=== PATIENT | female | born 1990 | race Caucasian/White ===

== ENCOUNTER 2016-05-01 11:50 | Emergency (ER) | payer OTHER ==
[2016-05-01] MEDS ORDERED: NS 500 ML IV ONE (11:57)
[2016-05-01 12:00] VITALS: RESP 16; TEMP 97.9; O2SAT 100
--- NOTE | 2016-05-01 12:02 | CPEKG ---
Heart Rate: 63 RR Interval: 952 P-R Interval: 180 QRSD Interval: 88 QT Interval: 408 QTC Interval: 418 P Isabela: 65 QRS Isabela: 49 T Wave Isabela: 39 EKG Severity - NORMAL ECG - EKG Impression: SINUS RHYTHM Electronically Signed By: Ramakrishna Jack 02-May-2016 10:01:51
--- NOTE | 2016-05-01 12:23 | EDPHY ---
H & P Stated Complaint: Cp with radiation to jaw. HPI/ROS: CHIEF COMPLAINT: Flush, nauseated, vomiting HISTORY OF PRESENT ILLNESS: sudden onset of feeling flush, nauseated and then vomiting around 10:45 a.m.. 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 She stood up to walk out of the room, saw someone she knew and then vomited. She had no chest pain with this. She describes an abnormal sensation of the right side of the jaw and the roof of the mouth. This was accompanied by feeling flushed and lightheaded. He has the same symptoms she has had in the past, for which she has been diagnosed with dysautonomia. She has no chest pain of any kind right now or previously this. No fever or chills. No cough or congestion. No shortness of breath. No abdominal pain. Symptoms have improved after the IV Zofran she received EN route By EMS. No other associated complaints or modifying factors. Does have a history of anxiety and was started on citalopram yesterday morning, and has had 2 doses of 5 mg pills. REVIEW OF SYSTEMS: Ten systems reviewed and are negative unless otherwise noted in the HPI EXAMINATION General Appearance: Alert, no distress Head: normocephalic, atraumatic Eyes: Pupils equal and round, no conjunctival pallor or injection ENT, Mouth: Mucous membranes moist . Uvula midline. No erythema or edema. Neck: Normal inspection, supple, non-tender . Painless range of motion all planes. Respiratory: Lungs are clear to auscultation . No wheezing, rhonchi or crackles. Cardiovascular: Regular rate and rhythm . No murmur. Pulses intact distally and symmetrically. Gastrointestinal: Abdomen is soft and nontender Neurological: A&O, nonfocal, Strength is symmetric in all limbs. No dysmetria. No pronator drift. Sensory intact Skin: Warm and dry, no rash Extremities: Nontender, no pedal edema Psychiatric: Mood and affect normal DIFFERENTIAL DIAGNOSES: Including but not limited to electrolyte disturbance, dysautonomia, anxiety, stress, palpitations MDM: 12:15 p.m. episode of feeling flushed, nauseated and right-sided jaw discomfort. No chest pain of any kind during this. She is feeling significantly better at this time. No longer nauseated no longer flushed. She does have a history of this, and the symptoms are consistent with previous episodes. 1:20 p.m. patient is feeling much better. Laboratory studies are unremarkable. EKG is normal sinus rhythm. We will ambulate her to see if the symptoms return if not she will be discharged home. Recommend she follow up with primary care physician to discuss this and possibility of a referral for this diagnosis of this autonomic function. Patient is comfortable with this plan and discharged home in stable condition. EKG: Interpreted by Dr. Armstrong Rate is 60 beats per minute. Normal sinus rhythm. MD interval 180. QT interval 408. Normal axis. no ST depression or elevation. T-wave inversion and AVR and V1. SUPERVISION: Patient was evaluated in conjunction with the supervising physician. Please see their note for details. Source: Patient Exam Limitations: No limitations - Personal History LMP (Females 10-55): 8-14 Days Ago Current Tetanus Diphtheria and Acellular Pertussis (TDAP): Yes - Medical/Surgical History Hx Asthma: No Hx Chronic Respiratory Disease: No Hx Diabetes: No Hx Cardiac Disease: No Hx Renal Disease: No Hx Cirrhosis: No Hx Alcoholism: No Hx HIV/AIDS: No Hx Splenectomy or Spleen Trauma: No Other PMH: distaunonia. seizures. concussions - Social History Smoking Status: Never smoked Constitutional: Initial Vital Signs Temperature (C) 97.9 F 05/01/16 11:57 Heart Rate 70 05/01/16 11:57 Respiratory Rate 16 05/01/16 11:57 Blood Pressure 130/74 H 05/01/16 11:57 O2 Sat (%) 100 05/01/16 11:57 O2 Delivery Mode Room Air Allergies/Adverse Reactions: seasonal Allergy (Uncoded 05/01/16 12:00) Home Medications: Medication Instructions Recorded Atenolol 05/01/16 LORazepam 05/01/16 Medical Decision Making - Data Points Laboratory Results: Laboratory Results 05/01/16 11:55 05/01/16 11:55 05/01/16 05/01/16 05/01/16 11:55 11:55 11:55 WBC 6.83 10^3/uL 10^3/uL (3.80-9.50) RBC 5.07 10^6/uL 10^6/uL (4.18-5.33) Hgb 16.9 g/dL H g/dL (12.6-16.3) Hct 48.0 % H % (38.0-47.0) MCV 94.7 fL fL (81.5-99.8) MCH 33.3 pg pg (27.9-34.1) MCHC 35.2 g/dL g/dL (32.4-36.7) RDW 11.1 % L % (11.5-15.2) Plt Count 319 10^3/uL 10^3/uL (150-400) MPV 10.0 fL fL (8.7-11.7) Neut % (Auto) 56.8 % % (39.3-74.2) Lymph % (Auto) 34.1 % % (15.0-45.0) [place] % (Auto) 6.4 % % (4.5-13.0) Eos % (Auto) 2.0 % % (0.6-7.6) Baso % (Auto) 0.6 % % (0.3-1.7) Nucleat RBC Rel Count 0.0 % % (0.0-0.2) Absolute Neuts (auto) 3.87 10^3/uL 10^3/uL (1.70-6.50) Absolute Lymphs (auto) 2.33 10^3/uL 10^3/uL (1.00-3.00) Absolute Monos (auto) 0.44 10^3/uL 10^3/uL (0.30-0.80) Absolute Eos (auto) 0.14 10^3/uL 10^3/uL (0.03-0.40) Absolute Basos (auto) 0.04 10^3/uL 10^3/uL (0.02-0.10) Absolute Nucleated RBC 0.00 10^3/uL 10^3/uL (0-0.01) Immature Gran % 0.1 % % (0.0-1.1) Immature Gran # 0.01 10^3/uL 10^3/uL (0.00-0.10) Sodium 141 mEq/L mEq/L (134-144) Potassium 4.2 mEq/L mEq/L (3.5-5.2) Chloride 104 mEq/L mEq/L (97-110) Carbon Dioxide 21 mEq/l L mEq/l (22-31) Anion Gap 16 mEq/L mEq/L (8-16) BUN 8 mg/dL mg/dL (7-23) Creatinine 0.7 mg/dL mg/dL (0.6-1.0) Estimated GFR > 60 Glucose 87 mg/dL mg/dL (70-100) Calcium 10.8 mg/dL H mg/dL (8.5-10.4) Phosphorus Pending Total Bilirubin 0.9 mg/dL mg/dL (0.1-1.4) Conjugated Bilirubin 0.5 mg/dL mg/dL (0.0-0.5) Unconjugated Bilirubin 0.4 mg/dL mg/dL (0.0-1.1) AST 25 IU/L IU/L (14-46) ALT 26 IU/L IU/L (9-52) Alkaline Phosphatase 51 IU/L IU/L (38-126) Troponin I < 0.012 ng/mL ng/mL (0-0.034) Total Protein 9.2 g/dL H g/dL (6.3-8.2) Albumin 5.2 g/dL H g/dL (3.5-5.0) Lipase 256.0 IU/L IU/L (23-300) Beta HCG, Qual NEGATIVE Medications Given: Discontinued Medications Sodium Chloride (Ns) 500 mls @ 0 mls/hr IV ONCE ONE PRN Reason: As Directed Stop: 05/01/16 11:58 Last Admin: 05/01/16 12:21 Dose: 500 mls Departure - Departure Disposition: Home, Routine, Self-Care Clinical Impression: Flushing Nausea & vomiting Qualifiers: Vomiting type: unspecified Vomiting Intractability: non-intractable Qualified Code(s): R11.2 - Nausea with vomiting, unspecified Condition: Good Instructions: Autonomic Dysreflexia (ED) Additional Instructions: Contact primary care physician to discuss the Celexa. Also notify them of today's episode and see them in the next 2-3 days. Return here for return of symptoms or any chest pain Referrals: Patient,NotPresent [Unknown] - As per Instructions Maria Antonia Smith MD [Primary Care Provider] - As per Instructions Stand Alone Forms: School Excuse
[2016-05-01 12:24] LABS: % IMMATURE GRANULYOCYTES 0.1 % (0.0-1.1); ABSOLUTE IMMATURE GRANULOCYTES 0.01 10^3/uL (0.00-0.10); ADD DIFF? NO; ADD MORPH? NO; ADD SCAN? NO; ATYPICAL LYMPHOCYTE FLAG 10 (0-99); FRAGMENT RBC FLAG 0 (0-99); HEMOGLOBIN 16.9 g/dL (12.6-16.3); LEFT SHIFT FLG 0 (0-99); LIPEMIA HEMOLYSIS FLAG 90 (0-99); MEAN CELL HEMOGLOBIN 33.3 pg (27.9-34.1); MEAN CELL HEMOGLOBIN CONCENTR. 35.2 g/dL (32.4-36.7); MEAN CELL VOLUME 94.7 fL (81.5-99.8); PLATELET CLUMPS FLAG 10 (0-99); PLATELET COUNT 319 10^3/uL (150-400); RED BLOOD CELL COUNT 5.07 10^6/uL (4.18-5.33); RED CELL DISTRIBUTION WIDTH 11.1 % (11.5-15.2)
[2016-05-01 13:05] LABS: ALANINE AMINOTRANSFERASE 26 IU/L (9-52); ALBUMIN 5.2 g/dL (3.5-5.0); ALKALINE PHOSPHATASE 51 IU/L (38-126); ANION GAP 16 mEq/L (8-16); ASPARTATE AMINOTRANSFERASE 25 IU/L (14-46); BILIRUBIN,TOTAL 0.9 mg/dL (0.1-1.4); BILIRUBIN-CONJUGATED 0.5 mg/dL (0.0-0.5); BILIRUBIN-UNCONJUGATED 0.4 mg/dL (0.0-1.1); CALCIUM 10.8 mg/dL (8.5-10.4); CARBON DIOXIDE 21 mEq/l (22-31); CHLORIDE 104 mEq/L (97-110); CREATININE 0.7 mg/dL (0.6-1.0); GLOMERULAR FILTRATION RATE > 60; GLUCOSE 87 mg/dL (70-100); POTASSIUM 4.2 mEq/L (3.5-5.2); SODIUM 141 mEq/L (134-144); TOTAL PROTEIN 9.2 g/dL (6.3-8.2)
[2016-05-01 13:17] LABS: TROPONIN I < 0.012 ng/mL (0-0.034)
[2016-05-01 13:39] VITALS: BP 129/75; PULSE 71
== END 2016-05-01 13:53 | disposition home or self-care (01) ==
LOC: EDUNIT#
DX: R23.2 Flushing (principal); R11.2 Nausea with vomiting, unspecified

== ENCOUNTER 2016-05-11 17:19 | Emergency (ER) | payer OTHER ==
--- NOTE | 2016-05-11 17:33 | CPEKG ---
Heart Rate: 81 RR Interval: 741 P-R Interval: 168 QRSD Interval: 90 QT Interval: 376 QTC Interval: 437 P [place]: 66 QRS [place]: 32 T Wave [place]: 15 EKG Severity - NORMAL ECG - EKG Impression: SINUS RHYTHM Electronically Signed By: Talia Min 11-May-2016 18:51:33
[2016-05-11] MEDS ORDERED: LORazepam 2 MG/ML INJ IVP ONE (17:41)
--- NOTE | 2016-05-11 17:59 | EDPHY ---
H & P Stated Complaint: hr "feels"irregular/dizzy (seen for same last week/nl exam) - Personal History LMP (Females 10-55): 15-21 Days Ago Current Tetanus/Diphtheria Vaccine: Yes - Medical/Surgical History Hx Asthma: No Hx Chronic Respiratory Disease: No Hx Diabetes: No Hx Cardiac Disease: No Hx Renal Disease: No Hx Cirrhosis: No Hx Alcoholism: No Hx HIV/AIDS: No Hx Splenectomy or Spleen Trauma: No Other PMH: distaunonia. seizures. concussions - Social History Smoking Status: Never smoked HPI/ROS: Chief complaint: Flushed feeling History of present illness: This is a 26-year-old female who presents to the emergency department reporting feeling flushed. She reports she has been feeling flushed intermittently for the last few days. She has associated nausea with this feeling as well as palpitations. States today she did develop some jaw pain, trouble breathing and discomfort in the chest. She denies precipitating factors. She denies alleviating factors. She has had this problem multiple times previously in the past. She does report she is followed by a primary care doctor and has seen a cardiology group, currently it is believe she is suffering from dysautonomia. This is typical presentation for her. Review of systems: A 10 point review of systems was obtained and other than described above was negative (Vimal Beaulieu) - Physical Exam Exam: General Appearance: Alert, nontoxic. Eyes: Pupils equal and round no pallor or injection. ENT, Mouth: Mucous membranes moist. Respiratory: There are no retractions, lungs are clear to auscultation. Cardiovascular: Regular rate and rhythm. No murmur, rubs or gallops appreciated. Gastrointestinal: Abdomen is soft and non tender, no masses, bowel sounds normal. Neurological: Alert and oriented x4. Cranial nerves 2-12 grossly intact. Strength and sensation intact and symmetrical. Skin: Warm and dry, no rashes. Musculoskeletal: Neck is supple non tender. Extremities are symmetrical, full range of motion. Psychiatric: Patient is oriented X 3, there is no agitation. (Vimal Beaulieu) Constitutional: Initial Vital Signs Temperature (C) 36.6 C 05/11/16 17:23 Heart Rate 100 05/11/16 17:23 Respiratory Rate 24 H 05/11/16 17:23 Blood Pressure 134/81 H 05/11/16 17:23 O2 Sat (%) 100 05/11/16 17:23 O2 Delivery Mode Room Air Allergies/Adverse Reactions: seasonal Allergy (Uncoded 05/11/16 17:22) Home Medications: Medication Instructions Recorded Atenolol 05/01/16 LORazepam 05/01/16 Medical Decision Making ED Course/Re-evaluation: Patient is discussed with my secondary supervising physician Dr. Talia Min. Patient presents to the emergency department feeling flushed with associated symptoms. On presentation she is nontoxic. Afebrile and vital signs are stable. Physical exam is benign. Blood studies and EKG are unremarkable. She has suffered from this problem multiple times previously. This is typical for her. At this time I do not believe she warrants inpatient admission. She states she has an appointment with [facility] this Thursday, 2 days from now for continued evaluation of her problems. She is asked to keep this appointment. Home care is discussed. Return precautions are given. Patient voiced understanding and agreement with plan. (Vimal Beaulieu) Differential Diagnosis: Included but not limited to anemia, electrolyte disturbances, cardiac dysrhythmias, anxiety (Vimal Beaulieu) Other Provider: The patient was evaluated and managed by the physician hr assistant. I have reviewed this chart and I agree with the findings and plan of care as documented , as indicated by my signature. I am the secondary supervising physician. ( Talia Min) - Data Points Laboratory Results: Laboratory Results 05/11/16 17:56 05/11/16 17:56 05/11/16 05/11/16 05/11/16 17:56 17:56 17:56 WBC RBC Hgb Hct MCV MCH MCHC RDW Plt Count MPV Neut % (Auto) Lymph % (Auto) [place] % (Auto) Eos % (Auto) Baso % (Auto) Nucleat RBC Rel Count Absolute Neuts (auto) Absolute Lymphs (auto) Absolute Monos (auto) Absolute Eos (auto) Absolute Basos (auto) Absolute Nucleated RBC Immature Gran % Immature Gran # Sodium 140 mEq/L mEq/L (134-144) Potassium 3.9 mEq/L mEq/L (3.5-5.2) Chloride 106 mEq/L mEq/L (97-110) Carbon Dioxide 19 mEq/l L mEq/l (22-31) Anion Gap 15 mEq/L mEq/L (8-16) BUN 7 mg/dL mg/dL (7-23) Creatinine 0.7 mg/dL mg/dL (0.6-1.0) Estimated GFR > 60 Glucose 98 mg/dL mg/dL (70-100) Calcium 10.1 mg/dL mg/dL (8.5-10.4) Magnesium 2.0 mg/dL mg/dL (1.6-2.3) Troponin I < 0.012 ng/mL ng/mL (0-0.034) TSH 1.820 uIU/mL uIU/mL (0.465-4.680) Beta HCG, Qual NEGATIVE 05/11/16 17:56 WBC 9.49 10^3/uL 10^3/uL (3.80-9.50) RBC 4.70 10^6/uL 10^6/uL (4.18-5.33) Hgb 15.3 g/dL g/dL (12.6-16.3) Hct 43.8 % % (38.0-47.0) MCV 93.2 fL fL (81.5-99.8) MCH 32.6 pg pg (27.9-34.1) MCHC 34.9 g/dL g/dL (32.4-36.7) RDW 10.8 % L % (11.5-15.2) Plt Count 282 10^3/uL 10^3/uL (150-400) MPV 10.0 fL fL (8.7-11.7) Neut % (Auto) 65.2 % % (39.3-74.2) Lymph % (Auto) 24.8 % % (15.0-45.0) [place] % (Auto) 7.6 % % (4.5-13.0) Eos % (Auto) 1.8 % % (0.6-7.6) Baso % (Auto) 0.4 % % (0.3-1.7) Nucleat RBC Rel Count 0.0 % % (0.0-0.2) Absolute Neuts (auto) 6.19 10^3/uL 10^3/uL (1.70-6.50) Absolute Lymphs (auto) 2.35 10^3/uL 10^3/uL (1.00-3.00) Absolute Monos (auto) 0.72 10^3/uL 10^3/uL (0.30-0.80) Absolute Eos (auto) 0.17 10^3/uL 10^3/uL (0.03-0.40) Absolute Basos (auto) 0.04 10^3/uL 10^3/uL (0.02-0.10) Absolute Nucleated RBC 0.00 10^3/uL 10^3/uL (0-0.01) Immature Gran % 0.2 % % (0.0-1.1) Immature Gran # 0.02 10^3/uL 10^3/uL (0.00-0.10) Sodium Potassium Chloride Carbon Dioxide Anion Gap BUN Creatinine Estimated GFR Glucose Calcium Magnesium Troponin I TSH Beta HCG, Qual Medications Given: Discontinued Medications Lorazepam (Ativan Injection) 1 mg IVP EDNOW ONE Stop: 05/11/16 17:42 Last Admin: 05/11/16 17:59 Dose: 1 mg Departure - Departure Disposition: Home, Routine, Self-Care Clinical Impression: Palpitations Condition: Good Instructions: Palpitations (ED) Additional Instructions: Follow-up with your primary care doctor this week for continued evaluation and care If symptoms worsen or new symptoms develop return to the emergency department for recheck Referrals: Maria Antonia Smith MD [Primary Care Provider] - As per Instructions
[2016-05-11 18:28] LABS: % IMMATURE GRANULYOCYTES 0.2 % (0.0-1.1); ABSOLUTE IMMATURE GRANULOCYTES 0.02 10^3/uL (0.00-0.10); ADD DIFF? NO; ADD MORPH? NO; ADD SCAN? NO; ATYPICAL LYMPHOCYTE FLAG 10 (0-99); FRAGMENT RBC FLAG 0 (0-99); HEMATOCRIT 43.8 % (38.0-47.0); HEMOGLOBIN 15.3 g/dL (12.6-16.3); LEFT SHIFT FLG 0 (0-99); LIPEMIA HEMOLYSIS FLAG 90 (0-99); MEAN CELL HEMOGLOBIN 32.6 pg (27.9-34.1); MEAN CELL HEMOGLOBIN CONCENTR. 34.9 g/dL (32.4-36.7); MEAN CELL VOLUME 93.2 fL (81.5-99.8); PLATELET CLUMPS FLAG 0 (0-99); PLATELET COUNT 282 10^3/uL (150-400); RED CELL DISTRIBUTION WIDTH 10.8 % (11.5-15.2)
[2016-05-11 18:39] LABS: TROPONIN I < 0.012 ng/mL (0-0.034)
[2016-05-11 18:41] LABS: ANION GAP 15 mEq/L (8-16); CALCIUM 10.1 mg/dL (8.5-10.4); CARBON DIOXIDE 19 mEq/l (22-31); CHLORIDE 106 mEq/L (97-110); CREATININE 0.7 mg/dL (0.6-1.0); GLOMERULAR FILTRATION RATE > 60; GLUCOSE 98 mg/dL (70-100); POTASSIUM 3.9 mEq/L (3.5-5.2); SODIUM 140 mEq/L (134-144)
[2016-05-11 19:51] VITALS: BP 117/72; PULSE 78; RESP 18; TEMP 99; O2SAT 96
== END 2016-05-11 19:49 | disposition home or self-care (01) ==
DX: R00.2 Palpitations (principal)
CPT/HCPCS: 96374

== ENCOUNTER 2016-08-05 15:44 | Emergency (ER) | payer OTHER ==
--- NOTE | 2016-08-05 17:05 | EDPHY ---
H & P Stated Complaint: months of dizzyness/palpitations today noted sob Time Seen by Provider: 08/05/16 17:04 Source: Patient - Personal History LMP (Females 10-55): 22-28 Days Ago Current Tetanus/Diphtheria Vaccine: Yes - Medical/Surgical History Hx Asthma: No Hx Chronic Respiratory Disease: No Hx Diabetes: No Hx Cardiac Disease: No Hx Renal Disease: No Hx Cirrhosis: No Hx Alcoholism: No Hx HIV/AIDS: No Hx Splenectomy or Spleen Trauma: No Other PMH: distaunonia. seizures. concussions - Social History Smoking Status: Never smoked Constitutional: Initial Vital Signs Temperature (C) 36.7 C 08/05/16 16:00 Heart Rate 83 08/05/16 16:00 Respiratory Rate 16 08/05/16 16:00 Blood Pressure 141/98 H 08/05/16 16:00 O2 Sat (%) 98 08/05/16 16:00 O2 Delivery Mode Room Air Allergies/Adverse Reactions: seasonal Allergy (Uncoded 08/05/16 15:58) Home Medications: Medication Instructions Recorded Atenolol 05/01/16 LORazepam 05/01/16 PRILOSEC 08/05/16 Zantac 08/05/16 busPIRone 08/05/16 Medical Decision Making - Diagnostics Imaging: Discussed imaging studies w/ screw cutter Radiologist ED Course/Re-evaluation: CHIEF COMPLAINT: Dizziness, Palpitations HISTORY OF PRESENT ILLNESS: The patient is a 26-year-old female presenting with intermittent dizziness and palpitations. The patient has experienced symptoms of palpitations for the past year and has been evaluated by a welder production line gas. She worse a heart monitor for three days with no abnormalities seen. She saw an ENT and Neurologist for these bouts of dizziness. ENT found no inner ear issues. She had normal cervical neck MRA. She states these dizziness and palpitations have become more frequent recently. She has multiple episodes per day. She describes the dizziness and a sensation of being on a boat. She occasionally has associated chest tightness. These dizzy spells are not always associated with palpitations. The patient was recently started on anxiety medication and takes medication for anxiety attacks. She states she is able to tell the difference between anxiety and these dizzy episodes. REVIEW OF SYSTEMS: A 10 point review of systems was performed and is negative with the exception of the elements mentioned in the history of present illness. PHYSICAL EXAM: HR, BP, O2 Sat, RR. Temp noted General Appearance: Alert, well hydrated, appropriate, and non-toxic appearing. Head: Atraumatic without scalp tenderness or obvious injury Eyes: Pupils equal, round, reactive to light and accommodation, EOMI, no trauma , no injection. Ears: Clear bilaterally, no perforation, normal landmarks Nose: Atraumatic, no rhinorrhea, clear. Throat: There is no erythema or exudates, no lesions, normal tonsils, mucus membranes moist. Neck: Supple, 2+ carotid upstroke, nontender, no lymphadenopathy. Respiratory: No retractions, no distress, no wheezes, and no accessory muscle use. Lungs are clear to auscultation bilaterally. Cardiovascular: Regular rate and rhythm, no murmurs, rubs, or gallops. Bilateral carotid, radial, dorsalis pedis, and posterior tibial pulses intact. Good capillary refill all extremities. Gastrointestinal: Abdomen is soft, nontender, non-distended, no masses, no rebound, no guarding, no peritoneal signs. Musculoskeletal: Normal active ROM of all extremities, atraumatic. Neurological: Alert, appropriate, and interactive. The patient has normal DTRs and non-focal cranial nerves, motor, sensory, and cerebellar exam. Skin: No rashes, good turgor, no nodules on palpation. Past medical history: Anxiety, Seizures Past surgical history: Denies. Family history: Noncontributory. Social history: [employer] student. Single. Lives in [place]. DIAGNOSTICS/PROCEDURES/CRITICAL CARE TIME: ECHO is normal. An MRI of brain was obtained. Images were called to me by the radiologist. MRI is normal. See the full radiology report in the imaging section. DIFFERENTIAL DIAGNOSIS: The differential diagnosis for the patient's dizziness included but was not limited to peripheral and central causes of vertigo, orthostatic causes including dehydration, cardiogenic and neurogenic causes, and blood loss. MEDICAL DECISION MAKING: Patient presents with intermittent episodes of dizziness and palpitations that have been ongoing for the past year. Patient has had some work up done in regards to these symptoms. She has seen a neurologist for cervical spine MRA. She saw ENT and Electronics Engineering Manager. No remarkable findings. Patient takes a very small dose of buspirone for anxiety, this dosing may not be therapeutic. Plan to check ECHO for abnormality. Basic labs ordered as well as TSH and Magnesium. Patient has normal ECHO. Noncontrast MR brain is pending. Lab work is unremarkable. MRI is normal. Plan to discharge patient home. - Data Points Laboratory Results: Laboratory Results 08/05/16 18:13 08/05/16 18:13 08/05/16 08/05/16 08/05/16 18:13 18:13 18:13 WBC 11.16 10^3/uL H 10^3/uL (3.80-9.50) RBC 4.57 10^6/uL 10^6/uL (4.18-5.33) Hgb 15.3 g/dL g/dL (12.6-16.3) Hct 44.1 % % (38.0-47.0) MCV 96.5 fL fL (81.5-99.8) MCH 33.5 pg pg (27.9-34.1) MCHC 34.7 g/dL g/dL (32.4-36.7) RDW 11.3 % L % (11.5-15.2) Plt Count 298 10^3/uL 10^3/uL (150-400) MPV 10.6 fL fL (8.7-11.7) Neut % (Auto) 70.0 % % (39.3-74.2) Lymph % (Auto) 21.7 % % (15.0-45.0) [place] % (Auto) 5.6 % % (4.5-13.0) Eos % (Auto) 2.0 % % (0.6-7.6) Baso % (Auto) 0.4 % % (0.3-1.7) Nucleat RBC Rel Count 0.0 % % (0.0-0.2) Absolute Neuts (auto) 7.81 10^3/uL H 10^3/uL (1.70-6.50) Absolute Lymphs (auto) 2.42 10^3/uL 10^3/uL (1.00-3.00) Absolute Monos (auto) 0.63 10^3/uL 10^3/uL (0.30-0.80) Absolute Eos (auto) 0.22 10^3/uL 10^3/uL (0.03-0.40) Absolute Basos (auto) 0.05 10^3/uL 10^3/uL (0.02-0.10) Absolute Nucleated RBC 0.00 10^3/uL 10^3/uL (0-0.01) Immature Gran % 0.3 % % (0.0-1.1) Immature Gran # 0.03 10^3/uL 10^3/uL (0.00-0.10) Sodium 140 mEq/L mEq/L (134-144) Potassium 3.8 mEq/L mEq/L (3.5-5.2) Chloride 106 mEq/L mEq/L (97-110) Carbon Dioxide 21 mEq/l L mEq/l (22-31) Anion Gap 13 mEq/L mEq/L (8-16) BUN 9 mg/dL mg/dL (7-23) Creatinine 0.7 mg/dL mg/dL (0.6-1.0) Estimated GFR > 60 Glucose 84 mg/dL mg/dL (70-100) Calcium 9.3 mg/dL mg/dL (8.5-10.4) Magnesium 2.2 mg/dL mg/dL (1.6-2.3) NT-Pro-B Natriuret Pep 53 pg/mL pg/mL (0-125) TSH 1.780 uIU/mL uIU/mL (0.465-4.680) Beta HCG, Qual NEGATIVE Departure - Departure Disposition: Home, Routine, Self-Care Clinical Impression: Dizziness, Palpitations Condition: Good Instructions: Dizziness (ED), Palpitations (ED) Additional Instructions: Your brain MRI was normal today. Please followup with your primary care physician if your symptoms persist. Referrals: Maria Antonia Smith MD [Primary Care Provider] - As per Instructions Report Scribed for: Gabriel Chavez Report Scribed by: Marissa Jimenez Date of Report: 08/05/16 Time of Report: 17:22
--- NOTE | 2016-08-05 17:36 | CPEKG ---
Heart Rate: 80 RR Interval: 750 P-R Interval: 168 QRSD Interval: 82 QT Interval: 376 QTC Interval: 434 P [place]: 71 QRS [place]: 25 T Wave [place]: 33 EKG Severity - NORMAL ECG - EKG Impression: SINUS RHYTHM Electronically Signed By: Gabriel Chavez 05-Aug-2016 21:03:46
[2016-08-05 18:36] LABS: % IMMATURE GRANULYOCYTES 0.3 % (0.0-1.1); ABSOLUTE IMMATURE GRANULOCYTES 0.03 10^3/uL (0.00-0.10); ADD DIFF? NO; ADD MORPH? NO; ADD SCAN? NO; ATYPICAL LYMPHOCYTE FLAG 10 (0-99); FRAGMENT RBC FLAG 0 (0-99); HEMATOCRIT 44.1 % (38.0-47.0); HEMOGLOBIN 15.3 g/dL (12.6-16.3); LEFT SHIFT FLG 0 (0-99); LIPEMIA HEMOLYSIS FLAG 90 (0-99); MEAN CELL HEMOGLOBIN 33.5 pg (27.9-34.1); MEAN CELL HEMOGLOBIN CONCENTR. 34.7 g/dL (32.4-36.7); MEAN CELL VOLUME 96.5 fL (81.5-99.8); MEAN PLATELET VOLUME 10.6 fL (8.7-11.7); PLATELET CLUMPS FLAG 10 (0-99); PLATELET COUNT 298 10^3/uL (150-400); RED BLOOD CELL COUNT 4.57 10^6/uL (4.18-5.33); RED CELL DISTRIBUTION WIDTH 11.3 % (11.5-15.2)
[2016-08-05 19:01] LABS: ANION GAP 13 mEq/L (8-16); CALCIUM 9.3 mg/dL (8.5-10.4); CARBON DIOXIDE 21 mEq/l (22-31); CHLORIDE 106 mEq/L (97-110); CREATININE 0.7 mg/dL (0.6-1.0); GLOMERULAR FILTRATION RATE > 60; GLUCOSE 84 mg/dL (70-100); MAGNESIUM 2.2 mg/dL (1.6-2.3); POTASSIUM 3.8 mEq/L (3.5-5.2); SODIUM 140 mEq/L (134-144)
[2016-08-05 20:37] VITALS: BP 117/77; PULSE 73; RESP 16; O2SAT 99
[2016-08-05 21:43] VITALS: TEMP 97.9
--- NOTE | 2016-08-06 09:06 | ECHO ---
[id number] + + [address] : : [place] [address] : : [phone] + Adult Echocardiographic Report + ------+ :Name: ESTHER HUNG RStudy Date: 08/05/2016 06:00 PM : : Hospital Admission Number: [id number] Locati on: ER: :: 1990 Gender: Female Height: 65 in : :Age: 26 yrs Race: WH Weight: 123 lb : :Reason For Study: Chest Pain : : BSA: 1.6 meter s2 : + ------+ MMode/2D Measurements \T\ Calculations IVSd: 0.50 cm LVIDd: 4.3 cm FS: 48.5 % Ao root diam: LVPWd: 0.64 cm LVIDs: 2.2 cm EDV(Teich): 2.8 cm 84.4 ml LA dimension: ESV(Teich): 2.4 cm 16.8 ml EF(Teich): 80.1 % LVLd ap4: 7.4 cm SV(MOD-sp4): EDV(MOD-sp4): 43.0 ml 56.0 ml LVLs ap4: 5.8 cm ESV(MOD-sp4): 13.0 ml EF(MOD-sp4): 76.8 % Normal Measurement Values: + + :LVIDd (3.5-5.7cm) IVSd (0.6-1.1cm) LVPWd (0.6-1.1cm) Aortic Root (2.0-3.7cm)Left Atrium (1.5-4.0cm): :LV Vol(d) (76-115ml) LV Vol(s) (29-48ml) Ejec Fraction (50-65%)PV Arsenio (0.6- 1.2m/s) TV Arsenio (0.4-1.0m/s) : :MV E Arsenio (0.8-1.0m/s)MV A Arsenio (0.3-1.0m/s)LVOT Arsenio (0.7-1.2m/s) Asc Ao Arsenio ( 0.9-1.8m/s) : + + Doppler Measurements \T\ Calculations MV E max arsenio: 102.0 cm/sec Ao V2 max: 135.0 cm/sec MV A max arsenio: 58.7 cm/sec Ao max P.3 mmHg MV E/A: 1.7 Left Ventricle The left ventricle is normal in size. There is normal left ventricular wall thickness. The left ventricle is hyperdynamic. Ejection Fraction = 70-75%. No regional wall motion abnormalities noted. Right Ventricle The right ventricle is normal in size and function. Atria The left atrial size is normal. Right atrial size is normal. The interatrial septum is intact with no evidence for an atrial septal defect. Mitral Valve The mitral valve is normal in structure and function. There is no evidence of mitral valve prolapse. There is no mitral valve stenosis. There is trace mitral regurgitation. Tricuspid Valve Normal tricuspid valve. There is trace tricuspid regurgitation. Aortic Valve The aortic valve is trileaflet. The aortic valve opens well. There is no aortic stenosis. There is no aortic insufficiency. Pulmonic Valve The pulmonic valve is not well visualized. There is no pulmonic valvular regurgitation. Great Vessels The aortic root is normal size. Pericardium/Pleural There is no pericardial effusion. Conclusion A complete two-dimensional transthoracic echocardiogram was performed (2D, M-mode, Doppler and color flow Doppler). The left ventricle is hyperdynamic. Ejection Fraction = 70-75%. There is trace mitral regurgitation. There is trace tricuspid regurgitation. Final Reading Physician: Iraj Celeste signed on 08/06/2016 09:04 AM Ordering Physician: Gabriel Chavez Performed By: Roselyn Noel RDCS
== END 2016-08-05 21:40 | disposition home or self-care (01) ==
DX: R42 Dizziness and giddiness (principal); R00.2 Palpitations

== ENCOUNTER → 2016-10-29 | Outpatient (CLI) | payer OTHER | LOC: FIMAGING 08:22 | PROVIDERS: ATTEND Internal Medicine Gastroenterology | DX: Z03.89 Encounter for observation for other suspected diseases and conditions ruled out (principal) | CPT/HCPCS: A9541 ==

== ENCOUNTER 2016-10-31 01:40 | Emergency (ER) | payer OTHER ==
[2016-10-31] MEDS ORDERED: NS 1,000 ML IV ONE ×3 (02:06→04:13)
[2016-10-31] MEDS ORDERED: LORazepam 2 MG/ML INJ IVP ONE (03:05)
[2016-10-31] MEDS ORDERED: ATENOLOL 25 MG TAB PO ONE (04:13)
--- NOTE | 2016-10-31 04:17 | EDPHY ---
H & P Stated Complaint: elevated hr HPI/ROS: HPI The patient presents with tachycardia which she noticed tonight while lying in bed. She checked her heart rate and was about 120 beats per minute. She drink water, though continued to have tachycardia, thus presented to the emergency room. She says today she walked a bit more than usual and thinks this could have caused her symptoms. She does not report any chest pain with this. She did receive a diagnosis of postural orthostatic tachycardia syndrome from the [facility] over the summer and has been on atenolol 25 mg q.a.m. ever since with some improvement in her symptoms. Last episode of tachycardia was in July. She is followed by Cardiology, Dr. Alvarado.. REVIEW OF SYSTEMS Constitutional: No fever, no chills. Eyes: No discharge. ENT: No sore throat. Cardiovascular: No chest pain, no palpitations. Respiratory: No cough, no shortness of breath. Gastrointestinal: No abdominal pain, no vomiting. Genitourinary: No hematuria. Musculoskeletal: No back pain. Skin: No rashes. Neurological: No headache. PMHx: Pots Soc Hx: Lives at home PHYSICAL General Appearance: Alert, no distress Eyes: Pupils equal and round no pallor or injection ENT, Mouth: Mucous membranes moist Respiratory: There are no retractions, lungs are clear to auscultation Cardiovascular: Mildly tachycardic with regular rhythm Gastrointestinal: Abdomen is soft and non-tender, no masses, bowel sounds normal Neurological: A&O, moves all extremities Skin: Warm and dry, no rashes Musculoskeletal: Neck is supple non tender Extremities: symmetrical, full range of motion Psychiatric: Patient is oriented X 3, there is no agitation Source: Patient Exam Limitations: No limitations - Personal History LMP (Females 10-55): 1-7 Days Ago Current Tetanus/Diphtheria Vaccine: Yes Current Tetanus Diphtheria and Acellular Pertussis (TDAP): Yes - Medical/Surgical History Hx Asthma: No Hx Chronic Respiratory Disease: No Hx Diabetes: No Hx Cardiac Disease: No Hx Renal Disease: No Hx Cirrhosis: No Hx Alcoholism: No Hx HIV/AIDS: No Hx Splenectomy or Spleen Trauma: No Other PMH: distaunonia. seizures. concussions - Social History Smoking Status: Never smoked Constitutional: Initial Vital Signs Temperature (C) 36.5 C 10/31/16 01:44 Heart Rate 135 H 10/31/16 01:44 Respiratory Rate 18 10/31/16 01:44 Blood Pressure 136/100 H 10/31/16 01:44 O2 Sat (%) 99 10/31/16 01:44 O2 Delivery Mode Room Air Allergies/Adverse Reactions: seasonal Allergy (Uncoded 08/05/16 15:58) Home Medications: Medication Instructions Recorded Atenolol 05/01/16 LORazepam 05/01/16 Zantac 08/05/16 busPIRone 08/05/16 Fludrocortisone Acetate [Florinef] 10/31/16 Medical Decision Making - Diagnostics EKG Interpretation: EKG: Complete interpretation has been separately recorded in the [employer] archive. Summary impression: Sinus tachycardia Differential Diagnosis: This is a 26-year-old female with postural orthostatic tachycardia syndrome who presents from home with an episode of tachycardia that began tonight while lying in bed after more physical exertion than usual today. On exam, she is well-appearing, with is mildly tachycardic currently after receiving a fluid bolus. Differential diagnosis includes dehydration, anxiety, pots. In the emergency department, the patient received IV fluids, small dose of Ativan. EKG was performed and was unremarkable. She was well enough to ambulate without difficulty. She received her morning dose of atenolol. She felt well enough to go home and was discharged with instructions for follow up with Cardiology. - Data Points Medications Given: Discontinued Medications Atenolol (Tenormin) 25 mg PO EDNOW ONE Stop: 10/31/16 04:14 Last Admin: 10/31/16 05:00 Dose: 25 mg Sodium Chloride (Ns) 1,000 mls @ 0 mls/hr IV ONCE ONE PRN Reason: Wide Open Stop: 10/31/16 02:07 Last Admin: 10/31/16 02:10 Dose: 1,000 mls Sodium Chloride (Ns) 1,000 mls @ 0 mls/hr IV EDNOW ONE; Wide Open PRN Reason: Protocol Stop: 10/31/16 03:07 Last Admin: 10/31/16 03:16 Dose: 1,000 mls Sodium Chloride (Ns) 1,000 mls @ 0 mls/hr IV EDNOW ONE; Wide Open PRN Reason: Protocol Stop: 10/31/16 04:14 Last Admin: 10/31/16 05:00 Dose: 1,000 mls Lorazepam (Ativan Injection) 0.5 mg IVP EDNOW ONE Stop: 10/31/16 03:06 Last Admin: 10/31/16 03:15 Dose: 0.5 mg Departure - Departure Disposition: Home, Routine, Self-Care Clinical Impression: Tachycardia, POTS (postural orthostatic tachycardia syndrome) Condition: Good Instructions: Tachycardia (ED) Referrals: Maria Antonia Smith MD [Primary Care Provider] - As per Instructions
[2016-10-31 04:37] VITALS: PULSE 98
[2016-10-31 06:13] VITALS: BP 118/77; RESP 16; TEMP 99; O2SAT 99
--- NOTE | 2016-11-01 11:08 | CPEKG ---
Heart Rate: 130 RR Interval: 462 P-R Interval: 144 QRSD Interval: 84 QT Interval: 284 QTC Interval: 418 P [place]: 70 QRS [place]: 31 T Wave [place]: -34 EKG Severity - OTHERWISE NORMAL ECG - EKG Impression: SINUS TACHYCARDIA Electronically Signed By: Huma Edwards 02-Nov-2016 07:13:44
== END 2016-10-31 06:11 | disposition home or self-care (01) ==
DX: I49.8 Other specified cardiac arrhythmias (principal); E86.9 Volume depletion, unspecified
CPT/HCPCS: 96365; J2060

== ENCOUNTER 2017-05-30 12:47 | Emergency (ER) | payer OTHER ==
[2017-05-30 12:56] VITALS: TEMP 98.1
[2017-05-30] MEDS ORDERED: NS 1,000 ML IV ONE (13:00)
--- NOTE | 2017-05-30 13:03 | CPEKG ---
Heart Rate: 113 RR Interval: 531 P-R Interval: 168 QRSD Interval: 78 QT Interval: 316 QTC Interval: 434 P [place]: 75 QRS [place]: 47 T Wave [place]: 23 EKG Severity - ABNORMAL ECG - EKG Impression: SINUS TACHYCARDIA EKG Impression: PAIRED VENTRICULAR PREMATURE COMPLEXES EKG Impression: LEFT ATRIAL ABNORMALITY Electronically Signed By: Chapo Armstrong 30-May-2017 16:36:07
--- NOTE | 2017-05-30 13:14 | EDPHY ---
HPI/HX/ROS/PE/MDM Narrative: CHIEF COMPLAINT: Rapid heart rate HPI: The patient is a 27 y/o female with a history of POTS complaining of acute onset rapid heart rate and low blood pressure one hour ago while lying down. 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 She measured her heart rate as high as 170 and her BP around 102/90 and took an extra dose of atenolol to treat this. She has not missed any doses of medications recently and denies caffeine or other stimulant use. On assessment here she says, "I don't feel bad I just don' t feel right with some tightness everywhere." Symptoms feel similar to prior flares, but she has never seen her heart rate this high, which prompted her to come to the ED. She is otherwise healthy. REVIEW OF SYSTEMS: Aside from elements discussed in the HPI, a comprehensive 10-point review of systems was reviewed and is negative. PMH: POTS (Postural Orthostatic Tachycardia Syndrome) SOCIAL HISTORY: Studying for bar exam right now. Neurologist: Dr. Gutiérrez. Apparel Stock Checker: Dr. Alvarado PHYSICAL EXAM: General:Patient is alert, in no acute distress. HR 117, BP 133/95 ENT:Eyes are normal to inspection. ENT inspection normal. Neck: Normal inspection. Full range of motion. Respiratory:No respiratory distress. Breath sounds normal bilaterally. Cardiovascular: Tachycardic regular rate and rhythm. Strong peripheral pulses. Normal cap refill. Abdomen:The abdomen is nontender to palpation. There are no peritoneal signs. Back: Normal to inspection. No tenderness to palpation. Skin: Normal color. No rash. Warm and dry. Extremities: Normal appearance. Full range of motion. Neuro: Oriented x3. Normal motor function. Normal sensory function. ED Course: This is a 27 y/o female with POTS who presents with a 1-hour history of acute onset tachycardia and low blood pressure while lying down. She is currently tachycardic around 115, but otherwise has a normal exam. Plan for IV, labs, EKG. The 12 lead EKG was interpreted by myself. Sinus tachycardia. See hard copy and/ or "[employer]ac[employer]" electronic copy for interpretation. Reevaluated patient and discussed work up. Labs and EKG are unremarkable. Her HR is now 91. She is feeling improved and ready to go home. I've recommended following up with her neurologist to discuss atenolol dosing. Return precautions discussed. She is comfortable with this plan. MDM: This is a young otherwise healthy female who presents with an episode of tachycardia that is similar to other episodes she has experienced, linked to her diagnosis of POTS. She presented to the ED because her HR dusing this episode was higher than normal, but this has resolved prior to arrival. ECG shows no evidence of arrhythmia at this time, and there is no evidence of PE, ACS, PTX or electrolyte abnormality. Her HR has normalized with IVNS. She is asymptomatic and comfortable with the plan to be discharged home. - Data Points Laboratory Results: Laboratory Results 05/30/17 13:22 05/30/17 13:22 05/30/17 05/30/17 05/30/17 13:22 13:22 13:22 WBC 9.50 10^3/uL 10^3/uL (3.80-9.50) RBC 4.83 10^6/uL 10^6/uL (4.18-5.33) Hgb 16.0 g/dL g/dL (12.6-16.3) Hct 45.7 % % (38.0-47.0) MCV 94.6 fL fL (81.5-99.8) MCH 33.1 pg pg (27.9-34.1) MCHC 35.0 g/dL g/dL (32.4-36.7) RDW 11.1 % L % (11.5-15.2) Plt Count 295 10^3/uL 10^3/uL (150-400) MPV 9.8 fL fL (8.7-11.7) Neut % (Auto) 70.3 % % (39.3-74.2) Lymph % (Auto) 23.2 % % (15.0-45.0) [place] % (Auto) 4.4 % L % (4.5-13.0) Eos % (Auto) 1.4 % % (0.6-7.6) Baso % (Auto) 0.4 % % (0.3-1.7) Nucleat RBC Rel Count 0.0 % % (0.0-0.2) Absolute Neuts (auto) 6.68 10^3/uL H 10^3/uL (1.70-6.50) Absolute Lymphs (auto) 2.20 10^3/uL 10^3/uL (1.00-3.00) Absolute Monos (auto) 0.42 10^3/uL 10^3/uL (0.30-0.80) Absolute Eos (auto) 0.13 10^3/uL 10^3/uL (0.03-0.40) Absolute Basos (auto) 0.04 10^3/uL 10^3/uL (0.02-0.10) Absolute Nucleated RBC 0.00 10^3/uL 10^3/uL (0-0.01) Immature Gran % 0.3 % % (0.0-1.1) Immature Gran # 0.03 10^3/uL 10^3/uL (0.00-0.10) Sodium 142 mEq/L mEq/L (135-145) Potassium 4.2 mEq/L mEq/L (3.5-5.2) Chloride 107 mEq/L mEq/L (97-110) Carbon Dioxide 22 mEq/l mEq/l (22-31) Anion Gap 13 mEq/L mEq/L (8-16) BUN 5 mg/dL L mg/dL (7-23) Creatinine 0.7 mg/dL mg/dL (0.6-1.0) Estimated GFR > 60 Glucose 121 mg/dL H mg/dL (70-100) Calcium 9.5 mg/dL mg/dL (8.5-10.4) Troponin I < 0.012 ng/mL ng/mL (0.000-0.034) Beta HCG, Qual NEGATIVE Medications Given: Discontinued Medications Sodium Chloride (Ns) 1,000 mls @ 0 mls/hr IV EDNOW ONE; Wide Open PRN Reason: Protocol Stop: 05/30/17 13:01 Last Admin: 05/30/17 13:19 Dose: 1,000 mls General Time Seen by Provider: 05/30/17 12:57 Initial Vital Signs: Initial Vital Signs Temperature (C) 36.7 C 05/30/17 12:53 Heart Rate 141 H 05/30/17 12:53 Respiratory Rate 20 05/30/17 12:53 Blood Pressure 131/80 H 05/30/17 12:53 O2 Sat (%) 98 05/30/17 12:53 O2 Delivery Mode Room Air Allergies/Adverse Reactions: seasonal Allergy (Uncoded 08/05/16 15:58) Home Medications: Medication Instructions Recorded Atenolol 05/01/16 LORazepam 05/01/16 Zantac 08/05/16 Amethia Lo Tablet 05/30/17 Departure - Departure Disposition: Home, Routine, Self-Care Clinical Impression: Tachycardia, POTS (postural orthostatic tachycardia syndrome) Condition: Good Instructions: Tachycardia (ED) Additional Instructions: Follow up with your neurologist next week. Continue medications as prescribed. Return to the ED for worsening of condition. Referrals: Maria Antonia Smith MD [Primary Care Provider] - As per Instructions Report Scribed for: Chapo Armstrong Report Scribed by: Mayela Bazan Date of Report: 05/30/17 Time of Report: 13:13 Physician Review and Approval Statement: Portions of this note were transcribed by an ED scribe. I personally performed the history, physical exam, and medical decision making; and confirm the accuracy of the information in the transcribed note.
[2017-05-30 13:30] LABS: PLATELET COUNT 295 10^3/uL (150-400)
[2017-05-30 14:08] VITALS: BP 116/81; PULSE 91; RESP 18; O2SAT 97
== END 2017-05-30 14:30 | disposition home or self-care (01) ==
DX: I49.8 Other specified cardiac arrhythmias (principal); E86.9 Volume depletion, unspecified

== ENCOUNTER → 2018-05-23 | Outpatient (CLI) | payer OTHER | LOC: BMCIMAGING 13:11 | PROVIDERS: ATTEND Family Medicine | DX: S99.921A Unspecified injury of right foot, initial encounter (principal); W22.8XXA Striking against or struck by other objects, initial encounter ==